=== PATIENT | female | born 1980 | race Caucasian/White ===

== ENCOUNTER 2018-01-13 23:19 | Emergency (ER) | payer MEDICAID ==
[~2018-01-13] VITALS: Ht 160 cm; Wt 69.0 kg
[2018-01-14 00:45] VITALS: BP 13/1
[2018-01-14] MEDS ORDERED: PREDNISONE 20MG TABLET PO ONE (01:00)
[2018-01-14] MEDS ORDERED: DIPHENHYDRAMINE 50MG CAPSULE PO ONE (01:00)
== END 2018-01-14 01:15 | disposition home or self-care (01) ==
LOC: ER 23:19
DX: L50.8 Other urticaria (principal)
CPT/HCPCS: 99283; J7512; Q0163

== ENCOUNTER 2021-11-19 15:58 | Emergency (ER) | payer MEDICAID ==
[~2021-11-19] VITALS: Ht 160 cm; Wt 65.0 kg
[2021-11-19 16:07] VITALS: BP 135/75
[2021-11-19] MEDS ORDERED: IBUPROFEN 600MG TABLET PO ONE (16:30)
[2021-11-19] MEDS ORDERED: ACETAMINOPHEN 325MG TABLET PO ONE (16:30)
[2021-11-19] MEDS ORDERED: IBUP-2029 MT (16:53)
[2021-11-19] MEDS ORDERED: TOPUD MT (16:53)
== END 2021-11-19 17:49 | disposition home or self-care (01) ==
LOC: ER 15:58
DX: R51.9 Headache, unspecified (principal); E05.90 Thyrotoxicosis, unspecified without thyrotoxic crisis or storm; I10 Essential (primary) hypertension; Z91.14 Patient's other noncompliance with medication regimen
CPT/HCPCS: 81025; 99283